=== PATIENT | female | born 1950 | race Caucasian/White ===

== ENCOUNTER 2017-06-30 18:51 | Emergency (ER) | payer MEDICAID, OTHER ==
[2017-06-30] MEDS ORDERED: IBUPROFEN 600 MG TAB PO ONE (19:02)
[2017-06-30 19:06] VITALS: BP 124/73; PULSE 76; RESP 20; TEMP 98.2; O2SAT 93
--- NOTE | 2017-06-30 19:34 | EDPHY ---
H & P Time Seen by Provider: 06/30/17 19:01 HPI/ROS: The patient felt the night before presentation-a mechanical fall at home while walking with pain to her left elbow primarily of moderate intensity, worse with movement and also mild knee pain bilaterally that she thinks is just a bruise. She also struck her nose and had brief pain at the nose that has since diminished in intensity mild discomfort. She took [id number] analgesics with partial relief and notes no other exacerbating factors. ROS: Neuro: No LOC. She was not dazed from the fall. No focal numbness tingling weakness. HEENT: No difficulty breathing through her nose. No dental injuries or intraoral trauma. Musculoskeletal: No neck or back pain. Pulmonary: No chest pain or shortness of breath Cardiovascular: No chest pain or heart palpitations. No lightheadedness. GI: No belly pain from the fall. : No complaints Integumentary: No lacerations or abrasions. 10 point ROS is otherwise negative. Smoking Status: Never smoked Physical Exam: Physical Exam Vital signs are normal. General: No acute distress HEENT: Atraumatic except for minimal tenderness to the bridge of the nose without crepitance, swelling, ecchymosis or deformity. Nares are clear with no septal hematoma. Intraoral exam-no dental trauma or intraoral lacerations. No mandibular tenderness or swelling. Eyes: Pupils equal and react to light. Extraocular motions are intact. Neck: Nontender full range of motion intact Lungs: No respiratory distress. Clear to auscultation bilaterally. No chest wall pain. Cardiac: Brisk capillary refill is intact throughout. Pulses are 2+ and symmetric in the affected extremity. Abdomen: Soft, nontender Extremities: Atraumatic normal except for left [id number] perhaps laterally that the region of the radial head with increased pain with flexion extension but full range of motion intact including pronation and supination. No significant laxity. Knees: Minimal tenderness to the patella is with no significant swelling or ecchymosis. Full range of motion intact. No knee effusion. No laxity. Other extremities are atraumatic Skin: No rash or pallor. Neuro: Alert and oriented x3 with no sensorimotor deficits. Initial differential diagnosis: Elbow fracture versus contusion versus sprain, knee contusions, nasal contusion, doubt fracture Constitutional: Initial Vital Signs Temperature (C) 36.8 C 06/30/17 19:03 Heart Rate 76 06/30/17 19:03 Respiratory Rate 20 06/30/17 19:03 Blood Pressure 124/73 H 06/30/17 19:03 O2 Sat (%) 93 06/30/17 19:03 O2 Delivery Mode Room Air Allergies/Adverse Reactions: No Known Allergies Allergy (Unverified 06/30/17 19:02) Home Medications: Medication Instructions Recorded Cholesterol Med 05/31/13 Pepcid 05/31/13 Botulinum Toxin Type A [Botox] 100 unit IM 06/30/17 Lisinopril 06/30/17 MDM/Departure - MDM Diagnostics: Elbow x-ray: Negative for fracture by my interpretation Medications Given: Discontinued Medications Ibuprofen (Motrin) 600 mg PO EDNOW ONE Stop: 06/30/17 19:03 Last Admin: 06/30/17 19:09 Dose: 600 mg ED Course/Re-evaluation: sling I counseled patient regarding elbow sprain. Discussion: Patient mechanical fall without evidence of significant head injury , bony injury or other concerning findings. She will follow up with Orthopedics regarding her elbow sprain if she is not quickly healing with brief rest stretches anti-inflammatories and sling - Depart Disposition: Home, Routine, Self-Care Clinical Impression: Elbow sprain Qualifiers: Encounter type: initial encounter Laterality: right Qualified Code(s): S53.401A - Unspecified sprain of right elbow, initial encounter Knee contusion Qualifiers: Encounter type: initial encounter Laterality: unspecified laterality Qualified Code(s): S80.00XA - Contusion of unspecified knee, initial encounter Condition: Good Instructions: Contusion in Adults (ED), Elbow Sprain (ED) Additional Instructions: Dx: 1. Elbow sprain 2. Knee contusions Plan sling for the next 10-14 days. Gently stretch the elbow each day to prevent stiffness. Ibuprofen, Tylenol and ice for pain control Follow up with Dr. Valderrama-orthopedic physician for further evaluation of her elbow sometime within the next 3-7 days Return for any significant worsening despite the treatment Referrals: Eliana Carlson DO [Primary Care Provider] - As per Instructions Kelly Valderrama MD [Medical Doctor] - As per Instructions
== END 2017-06-30 19:49 | disposition home or self-care (01) ==
LOC: CED 18:51
DX: S53.402A Unspecified sprain of left elbow, initial encounter (principal); S80.00XA Contusion of unspecified knee, initial encounter; W18.39XA Other fall on same level, initial encounter; Y92.009 Unspecified place in unspecified non-institutional (private) residence as the place of occurrence of the external cause; Y99.8 Other external cause status; Y93.01 Activity, walking, marching and hiking
CPT/HCPCS: 73080; 99283; A4565